=== PATIENT | female | born 1990 | race Caucasian/White ===

== ENCOUNTER 2016-04-01 02:26 | Emergency (ER) | payer OTHER ==
[2016-04-01 02:31] VITALS: TEMP 97.8; BMI 25.4
[2016-04-01] MEDS ORDERED: PROMETHAZINE 25 MG/ML VIAL IV ONE (03:01)
[2016-04-01] MEDS ORDERED: NS 1,000 ML IV ONE (03:01)
[2016-04-01] MEDS ORDERED: HYDROmorphone 1 MG INJECTION IV ONE (03:02)
[2016-04-01 03:09] LABS: AUTOMATED BASOPHIL 0.8 % (0-2); AUTOMATED EOSINOPHIL 3.6 % (0-5); AUTOMATED LYMPH 33.5 % (17-44); AUTOMATED MONOCYTE 9.3 % (3-10); AUTOMATED NEUTROPHIL 52.8 % (45-76); MPV 8.1 fL (7.4-10.4)
--- NOTE | 2016-04-01 03:24 | EDPRACDOC ---
- General Information Information Source: Patient Mode Of Arrival: Car - History of Present Illness Onset: 30 MINS Pain Location: Reports: RLQ, LLQ Pain Context: Reports: Spontaneous Pain Severity: Mild Pain Quality: Reports: Aching Pain Radiation: Reports: No Radiation Last Menstrual Period: NOW : No Adult Abdominal History: Denies: Abdominal Surgery Female Abdominal History: Denies: Abdominal Surgery Modifying Factors: improves with: Nothing Female Associated Signs & Symptoms: Reports: Nausea. Denies: Vomiting, Diarrhea , Fever, Hematuria, Vaginal Discharge Oral Intake: Normal Urinary Output: Normal <Darrin Tejeda - Last Filed: 04/01/16 07:03> <Bk Mejias - Last Filed: 04/01/16 07:42> - General Information Chief Complaint: Abdominal Pain Stated Complaint: ABD PAIN, VOMITING Time Seen by Provider: 04/01/16 02:53 Home Medications: Home Medications Oxycodone HCl/Acetaminophen [Percocet 5-325 mg Tablet] 1 each PO Q4 #30 tablet 04/01/16 Promethazine [Phenergan] 25 mg PO Q8H PRN #30 tab 04/01/16 Allergies/Adverse Reactions: Allergies Allergy/AdvReac Type Severity Reaction Status Date / Time Penicillins Allergy Hives* Verified 04/01/16 02:31 - History of Present Illness HPI: PATIENT PRESENTS C/O LOWER ABDOMINAL PAIN FOR DAYS. NO V/D. NO FEVER. HX OF OVARIAN CYSTS. DENIES DYSURIA. CURRENTLY ON MENSES. NO VAGINAL DISCHARGE. NO SURGERY. FEELS NAUSEATED (Darrin Tejeda) ED Past Medical History - History Reviewed Yes Nurses notes reviewed and agree except as marked Travel Outside of [place] in the Last 3 Months?: No - Patient Medical History Respiratory History: Reports: Asthma GI/ History: Reports: Gastroesophageal Reflux Psychological History: Reports: Anxiety. Denies: Depression Systemic History: Reports: Cancer - Social Medical History Smoking Status: Never smoker ETOH: None Substance Abuse: None Lives With: Family Lives In: Home <Darrin Tejeda - Last Filed: 04/01/16 07:03> EDM Review of Systems - Review of Systems ROS Negative Except as Marked: Yes All systems reviewed and were negative except as marked Constitutional: No Symptoms Reported. negative: Fever, Chills, Weakness, Fatigue, Loss of Appetite Eyes: No Symptoms Reported. negative: Redness, Blurred Vision, Double Vision, Discharge, Pain, Light Sensitive, Photophobia Ears: No Symptoms Reported. negative: Pain, Hearing Loss, Drainage, Ear Pulling Throat: No Symptoms Reported. negative: Pain, Swelling Nose: No Symptoms Reported. negative: Congestion, Bleeding, Discharge, Injection, Swelling, Deformity, Ecchymosis, Tender, Abrasion, Laceration Mouth: No Symptoms Reported. negative: Pain, Drooling Respiratory: No Symptoms Reported. negative: Cough, Brassy Cough, Barky Cough, Shortness of Breath, Wheezing, Hemoptysis Cardiovascular: No Symptoms Reported. negative: Chest Pain, Palpitations, Syncope, Edema, Orthopnea, PND, Skin Mottling, Cyanosis Gastrointestinal: Nausea, Pain. negative: Constipation, Diarrhea, Formula Intolerance, Melena, Vomiting Genitourinary: No Symptoms Reported. negative: Dysuria, Hematuria, Frequency, Discharge, Bleeding, Testicular Pain, Neurological: No Symptoms Reported. negative: Headache, Dizziness, Seizure, Numbness, Weakness, Speech Difficulty, Gait Difficulty Musculoskeletal: No Symptoms Reported. negative: Neck, Chestwall, Ribs, Back, Shoulder, Arm, Elbow, Forearm, Wrist, Hand, Pelvis, Hip, Femur, Knee, Leg, Ankle , Foot Integumentary: No Symptoms Reported. negative: Itching, Rash, Bruising, Wound Allergic/Immunologic: No Symptoms Reported. negative: Hives, Itching Hematologic: No Symptoms Reported. negative: Lymphadenopathy, Easy Bruising, Easy Bleeding Endocrine: No Symptoms Reported. negative: Weight Gain, Weight Loss Psychiatric: No Symptoms Reported. negative: Anxiety, Depression, Hallucinations, Insomnia, Suicidal <Darrin Tejeda - Last Filed: 04/01/16 07:03> - Physical Exam Constitutional: Alert (Awake), No apparent distress Oriented to: Time, Person, Place - HEENT Head: Normal ( normocephalic) Eye Exam: Normal (PERRL, EOMI, Sclera white) Oropharynx: Normal (Pharynx:Moist without exudate,Gums-no swelling) Tympanic Membrane: Normal ENT EAC: Normal TMJ: Normal Nose: No Symptoms Reported (septum midline) Neck: Normal (FROM, trachea at midline) - Respiratory/Cardiovascular Respiratory: Normal - CTA (BBS clear to auscultation without adventitious sounds ) Cardiovascular: Normal (RRR without murmur, gallop or rub) - GI Auscultation: Normal (NABS) Palpation: Normal (Soft,No rebound or guarding, non distended) Tenderness: Non tender Elizabeth's Sign: Negative - Musculoskeletal Back: Normal (Non-Tender) Extremities: Normal (Normal tone, Pulses 2+ No cyanosis or edema, FROM) - Integumentary Skin: Normal, Warm, Dry Lymphatics: Normal (no adenopathy) - Neurologic Memory Impaired: Normal Motor Function: Normal (Normal tone, Pulses 2+ No cyanosis or edema, FROM) Cranial Nerve: Normal (CN II-X11 intact sensation, strength 5/5) Cerebellar: Normal Mood Description: Normal Perception: Normal <Darrin Tejeda - Last Filed: 04/01/16 07:03> - Results 04/01/16 02:47 04/01/16 02:47 <Darrin Tejeda - Last Filed: 04/01/16 07:03> - Results 04/01/16 02:47 04/01/16 02:47 <Bk Mejias - Last Filed: 04/01/16 07:42> - Results WBC 7.9 xk/uL (3.8-10.8) 04/01/16 02:47 RBC 4.39 xM/uL (4.20-5.40) 04/01/16 02:47 Hgb 13.1 g/dL (12.0-16.0) 04/01/16 02:47 Hct 38.5 % (36-47) 04/01/16 02:47 MCV 88 fL (81-99) 04/01/16 02:47 MCH 29.7 pg (27-32) 04/01/16 02:47 MCHC 33.9 g/dl (33-36) 04/01/16 02:47 RDW 12.8 % (11.5-14.5) 04/01/16 02:47 Plt Count 279 xk/uL (130-400) 04/01/16 02:47 MPV 8.1 fL (7.4-10.4) 04/01/16 02:47 Neut % (Auto) 52.8 % (45-76) 04/01/16 02:47 Lymph % (Auto) 33.5 % (17-44) 04/01/16 02:47 [place] % (Auto) 9.3 % (3-10) 04/01/16 02:47 Eos % (Auto) 3.6 % (0-5) 04/01/16 02:47 Baso % (Auto) 0.8 % (0-2) 04/01/16 02:47 Absolute Neuts (auto) 4.11 xk/uL (1.7-8.2) 04/01/16 02:47 Absolute Lymphs (auto) 2.61 xk/uL (0.65-4.75) 04/01/16 02:47 Sodium 140 mEq/L (137-146) 04/01/16 02:47 Potassium 4.1 mEq/L (3.5-5.1) 04/01/16 02:47 Chloride 104 mEq/L (98-107) 04/01/16 02:47 Carbon Dioxide 26 mMOL/L (22-33) 04/01/16 02:47 Anion Gap 14 mEq/L (8-16) 04/01/16 02:47 BUN 14 MG/DL (7-17) 04/01/16 02:47 Creatinine 0.60 MG/DL (0.52-1.04) 04/01/16 02:47 Estimated GFR (MDRD) > 60 mL/min (>=60) 04/01/16 02:47 Glucose 95 mg/dL (70-99) 04/01/16 02:47 Calculated Osmolality 270 MOs/Kg (270-290) 04/01/16 02:47 Calcium 9.5 MG/DL (8.4-10.2) 04/01/16 02:47 Total Bilirubin 0.5 MG/DL (0.2-1.3) 04/01/16 02:47 AST 35 IU/L (14-36) 04/01/16 02:47 ALT 31 IU/L (9-52) 04/01/16 02:47 Alkaline Phosphatase 71 IU/L (38-126) 04/01/16 02:47 Total Protein 7.9 G/DL (6.3-8.2) 04/01/16 02:47 Albumin 4.4 G/DL (3.5-5.0) 04/01/16 02:47 Urine Color Yellow 04/01/16 03:28 Urine Clarity Clear 04/01/16 03:28 Urine pH 6.0 (5.0-8.0) 04/01/16 03:28 Ur Specific [place] 1.020 (1.003-1.035) 04/01/16 03:28 Urine Protein Neg (NEG/TRACE) 04/01/16 03:28 Urine Glucose (UA) Neg (NEGATIVE) 04/01/16 03:28 Urine Ketones Neg (NEGATIVE) 04/01/16 03:28 Urine Occult Blood 1+ (NEG/TRACE) H 04/01/16 03:28 Urine Nitrite Neg (NEGATIVE) 04/01/16 03:28 Urine Bilirubin Neg (NEGATIVE) 04/01/16 03:28 Urine Urobilinogen <2.0 MG/DL (0-1) 04/01/16 03:28 Ur Leukocyte Esterase Neg (NEGATIVE) 04/01/16 03:28 Urine RBC 0-2 (0-5) 04/01/16 03:28 Urine WBC 0-2 (0-5) 04/01/16 03:28 Ur Epithelial Cells 2+ 04/01/16 03:28 Urine Mucus Sm amt (NEG/OCC) 04/01/16 03:28 Urine Test Neg (NEGATIVE) 04/01/16 03:28 Lab Results 04/01/16 04/01/16 04/01/16 03:28 03:28 02:47 WBC 7.9 RBC 4.39 Hgb 13.1 Hct 38.5 MCV 88 MCH 29.7 MCHC 33.9 RDW 12.8 Plt Count 279 MPV 8.1 Neut % (Auto) 52.8 Lymph % (Auto) 33.5 [place] % (Auto) 9.3 Eos % (Auto) 3.6 Baso % (Auto) 0.8 Absolute Neuts (auto) 4.11 Absolute Lymphs (auto) 2.61 Sodium Potassium Chloride Carbon Dioxide Anion Gap BUN Creatinine Estimated GFR (MDRD) Glucose Calculated Osmolality Calcium Total Bilirubin AST ALT Alkaline Phosphatase Total Protein Albumin Urine Color Yellow Urine Clarity Clear Urine pH 6.0 Ur Specific [place] 1.020 Urine Protein Neg Urine Glucose (UA) Neg Urine Ketones Neg Urine Occult Blood 1+ H Urine Nitrite Neg Urine Bilirubin Neg Urine Urobilinogen <2.0 Ur Leukocyte Esterase Neg Urine RBC 0-2 Urine WBC 0-2 Ur Epithelial Cells 2+ Urine Mucus Sm amt Urine Test Neg 04/01/16 02:47 WBC RBC Hgb Hct MCV MCH MCHC RDW Plt Count MPV Neut % (Auto) Lymph % (Auto) [place] % (Auto) Eos % (Auto) Baso % (Auto) Absolute Neuts (auto) Absolute Lymphs (auto) Sodium 140 Potassium 4.1 Chloride 104 Carbon Dioxide 26 Anion Gap 14 BUN 14 Creatinine 0.60 Estimated GFR (MDRD) > 60 Glucose 95 Calculated Osmolality 270 Calcium 9.5 Total Bilirubin 0.5 AST 35 ALT 31 Alkaline Phosphatase 71 Total Protein 7.9 Albumin 4.4 Urine Color Urine Clarity Urine pH Ur Specific [place] Urine Protein Urine Glucose (UA) Urine Ketones Urine Occult Blood Urine Nitrite Urine Bilirubin Urine Urobilinogen Ur Leukocyte Esterase Urine RBC Urine WBC Ur Epithelial Cells Urine Mucus Urine Test (Darrin Tejeda) (Bk Mejias) Decision Time to Discharge: 06:51 - Departure Yes I personally saw and evaluated the patient. Disposition: Home Education/Counseling Given To: Patient, Family Member Education/Counseling Given Regarding: Diagnosis, Treatment, Prognosis, Follow Up <Drarin Tejeda - Last Filed: 04/01/16 07:03> <Bk Mejias - Last Filed: 04/01/16 07:42> - Departure Condition: Good Final Diagnosis: Right ovarian cyst Abdominal pain Qualifiers: Abdominal location: right lower quadrant Qualified Code(s): R10.31 - Right lower quadrant pain Instructions: Non-pharmacological Pain Management Therapies for Adults (GEN), Acute Abdominal Pain (ED), Abdominal Pain (ED) Referrals: None,No Provider [Primary Care Provider] - One Week Fan Islas MD [Staff Physician] - One Week Prescriptions: New Oxycodone HCl/Acetaminophen [Percocet 5-325 mg Tablet] 1 each PO Q4 #30 tablet Promethazine [Phenergan] 25 mg PO Q8H PRN #30 tab PRN Reason: Nausea/Vomiting
[2016-04-01 03:29] LABS: BLOOD UREA NITROGEN 14 MG/DL (7-17); CALCIUM 9.5 MG/DL (8.4-10.2); CALCULATED OSMOLALITY 270 MOs/Kg (270-290); CHLORIDE 104 mEq/L (98-107); GLUCOSE 95 mg/dL (70-99); SODIUM LEVEL 140 mEq/L (137-146); TOTAL PROTEIN 7.9 G/DL (6.3-8.2)
[2016-04-01 03:38] LABS: LEUKOCYTES/URINE NEG (NEGATIVE); NITRITE/URINE NEG (NEGATIVE); RBC/URINE 0-2 (0-5); URINE OCCULT BLOOD 1+ (NEG/TRACE); WBC/URINE 0-2 (0-5)
--- NOTE | 2016-04-01 04:05 | DIRPT ---
CLINICAL DATA: Bilateral flank and lower abdominal pain. EXAM: CT ABDOMEN AND PELVIS WITHOUT CONTRAST TECHNIQUE: Multidetector CT imaging of the abdomen and pelvis was performed following the standard protocol without IV contrast. COMPARISON: None. FINDINGS: Lower chest and abdominal wall: No contributory findings. Hepatobiliary: No focal liver abnormality.No evidence of biliary obstruction or stone. Pancreas: Unremarkable. Spleen: Unremarkable. Adrenals/Urinary Tract: Negative adrenals. Punctate right upper pole stone. No hydronephrosis or ureteral calculus. Unremarkable bladder. Reproductive:5 cm masslike structure in the right pelvis is consistent with an enlarged ovary. No discrete mass lesion is seen. Stomach/Bowel: No obstruction. No appendicitis. Vascular/Lymphatic: No acute vascular abnormality. No mass or adenopathy. Peritoneal: No ascites or pneumoperitoneum. Musculoskeletal: No acute abnormalities. These results were called by telephone at the time of interpretation on 04/01/2016 at 4:[address] NORMAN GUPTA DO, who verbally acknowledged these results. IMPRESSION: 1. Enlarged right ovary, recommend pelvic ultrasound with Doppler to evaluate for torsion or lesion. 2. Small right renal calculus. No hydronephrosis or ureteral calculus. 3. Normal appendix Electronically Signed By: Marcelo Retana M.D. On: 04/01/2016 04:02
--- NOTE | 2016-04-01 06:44 | DIRPT ---
CLINICAL DATA: Abnormal CT. Pelvic pain. EXAM: TRANSABDOMINAL AND TRANSVAGINAL ULTRASOUND OF PELVIS DOPPLER ULTRASOUND OF OVARIES TECHNIQUE: Both transabdominal and transvaginal ultrasound examinations of the pelvis were performed. Transabdominal technique was performed for global imaging of the pelvis including uterus, ovaries, adnexal regions, and pelvic cul-de-sac. It was necessary to proceed with endovaginal exam following the transabdominal exam to visualize the ovaries. Color and duplex Doppler ultrasound was utilized to evaluate blood flow to the ovaries. COMPARISON: Preceding CT FINDINGS: Uterus Measurements: 6 x 4 x 4 cm. No fibroids or other mass visualized. Endometrium Thickness: 4 mm. No focal abnormality visualized. Right ovary Measurements: 74 x 40 x 50 mm. Asymmetric enlargement secondary to 2 dominant masses with internal mid level echoes, few nonvascular echogenic septations/nodules, and mural echogenic foci with ring down artifact. The 2 largest areas measure 22 mm in diameter and 4 cm in diameter. Left ovary Measurements: 33 x 17 x 19 mm. Normal appearance/no adnexal mass. Pulsed Doppler evaluation of both ovaries demonstrates normal low-resistance arterial and venous waveforms. Other findings No abnormal free fluid. IMPRESSION: 1. Enlarged right ovary from two complex cystic masses, the larger measuring 4 cm, likely hemorrhagic cyst or endometrioma. Recommend sonographic follow-up in 6 to 12 weeks. 2. #1 places the patient at risk of intermittent torsion, but currently there is normal blood flow in both ovaries. Electronically Signed By: Marcelo Retana M.D. On: 04/01/2016 06:42
[2016-04-01] MEDS ORDERED: ONDANSETRON HCL 4 MG ODT TAB PO ONE (07:02)
[2016-04-01 07:36] VITALS: BP 99/66; PULSE 76
== END 2016-04-01 07:33 | disposition home or self-care (01) ==
LOC: ED 02:26
DX: N83.201 Unspecified ovarian cyst, right side (principal)
CPT/HCPCS: 36415; 74176; 76830; 76856; 80053; 81001; 81025; 85025; 93975; 96361; 96374; 99284; J2550; J3490; J1170